=== PATIENT | female | born 2000 | race Asian ===

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

== ENCOUNTER 2018-01-12 00:28 | Emergency (ER) | payer BC ==
[~2018-01-12] VITALS: Ht 160 cm; Wt 52.2 kg
[2018-01-12 00:35] VITALS: BP 124/85; TEMP 98.2
== END 2018-01-12 01:23 | disposition home or self-care (01) ==
LOC: ED 00:28
DX: R30.9 Painful micturition, unspecified (principal); R35.0 Frequency of micturition
CPT/HCPCS: 99281

== ENCOUNTER 2019-09-21 09:35 | Emergency (ER) | payer BC ==
[~2019-09-21] VITALS: Ht 160 cm; Wt 53.1 kg
[2019-09-21 09:40] VITALS: TEMP 98.1
[2019-09-21 10:19] LABS: PLATELET COUNT 357 K/uL (152-353)
[2019-09-21 10:27] LABS: POTASSIUM 3.4 mmol/L (3.6-5.2); SODIUM 138 mmol/L (136-145)
[2019-09-21 12:30] VITALS: BP 127/77
== END 2019-09-21 12:38 | disposition home or self-care (01) ==
LOC: ED 09:35
PROVIDERS: Family Medicine
DX: R07.89 Other chest pain (principal); K21.9 Gastro-esophageal reflux disease without esophagitis; E87.6 Hypokalemia; I49.8 Other specified cardiac arrhythmias
CPT/HCPCS: 80053; 81000; 81025; 82550; 84484; 85027; 93005; 99283

== ENCOUNTER 2021-01-05 23:12 | Emergency (ER) | payer BC ==
[~2021-01-05] VITALS: Ht 162.6 cm; Wt 54.4 kg
[2021-01-06 00:51] LABS: PLATELET COUNT 410 K/uL (152-353)
[2021-01-06 01:01] LABS: POTASSIUM 4.4 mmol/L (3.6-5.2)
[2021-01-06 02:15] VITALS: BP 144/90; TEMP 98.7
== END 2021-01-06 02:15 | disposition home or self-care (01) ==
LOC: ED 23:12
PROVIDERS: Family Medicine
DX: R42 Dizziness and giddiness (principal)
CPT/HCPCS: 36415; 80053; 81000; 81025; 85027; 99283

== ENCOUNTER 2021-12-14 19:08 | Emergency (ER) | payer BC ==
[~2021-12-14] VITALS: Ht 162.6 cm; Wt 56.7 kg
[2021-12-14 19:52] LABS: PLATELET COUNT 377 K/uL (152-353)
[2021-12-14 19:58] LABS: POTASSIUM 3.1 mmol/L (3.6-5.2); SODIUM 137 mmol/L (136-145)
[2021-12-14 20:11] LABS: PARTIAL THROMBOPLASTIN TIME 23.3 SECONDS (24.5-33.6)
[2021-12-14 20:30] VITALS: BP 138/84; TEMP 98.3
== END 2021-12-14 20:30 | disposition home or self-care (01) ==
LOC: ED 19:08
PROVIDERS: Hospitalist
DX: R00.2 Palpitations (principal); E87.6 Hypokalemia
CPT/HCPCS: 36415; 80053; 80320; 82550; 83880; 84484; 85027; 85379; 85610; 85730; 93005; 96360; 99284